=== PATIENT | male | born 1965 | race Caucasian/White ===

== ENCOUNTER 2023-05-27 17:01 | Emergency (ER) | payer OTHER, SELFPAY ==
[2023-05-27 17:02] VITALS: BP 141/92
[2023-05-27 17:18] VITALS: BP 142/78
[2023-05-27 17:19] VITALS: BMI 30.2
[2023-05-27 17:43] LABS: % Basophils 0.8 % (0-2); % Eosinophils 1.3 % (0-6); % Immature Granulocytes 0.4 % (0-0.5); % Lymphocytes 19.7 % (20.5-51.1); % Monocytes 8.2 % (1.7-9.3); % Neutrophils 69.6 % (42.2-75.2); Absolute Basophils 0.1 10^3/uL (0-0.2); Absolute Eosinophils 0.2 10^3/uL (0-0.7); Absolute Immature Granulocytes 0.1 10^3/uL (0-0.05); Absolute Lymphocytes 2.5 10^3/uL (1.2-3.4); Absolute Neutrophils 8.8 10^3/uL (1.4-6.5); Hematocrit 45.1 % (39.0-52.0); Hemoglobin 15.7 g/dL (13.0-18.0); Mean Corp Hgb Conc. 34.8 g/dL (33.0-37.0); Mean Platelet Volume 10.2 fL (7.4-10.4); Nucleated Red Blood Cells % 0 % (-); Platelet Count 297 10^3/uL (130-400); Red Cell Dist. Width 12.2 % (11.5-14.5); White Blood Cell Count 12.6 10^3/uL (4.8-10.8)
--- NOTE | 2023-05-27 17:48 | ED.GENMED ---
History of Present Illness
General
Chief Complaint: Abdominal Pain
Source: patient
Exam Limitations: none
Time Seen by Provider: 05/27/23 17:38
Nursing documentation reviewed up to this point in time: agreed with
Travel History
Have you had any contact with someone who has COVID-19?: No
Do you have any symptoms of coronavirus? Fever > 100 degrees, chills, cough, shortness of breath, sore throat, loss of taste or smell, muscle aches, or headache?: No
History of Present Illness
History of Present Illness:
Patient to ED with complaint of bilateral lower abdominal pain. Symptoms started this AM and continue to worsen. Denies fever/chills, n/v. States he passed a small amt of watery stool today. Brought self to ED for eval.
Past History
Past History
ED Past Medical History: Asthma, HTN and Psychiatric (ADHD)
ED Past Surgical History: Orthopedic and Other (Hernia repair)
Social History
Tobacco: Non-smoker
Alcohol: None
Drug: None
Review of Systems
Review of Systems
Allergies reviewed?: Yes
All Other Systems: ROS reviewed and negative except as documented in HPI and ROS
Constitutional: Reports no symptoms
EENT: Reports no symptoms
Respiratory: Reports no symptoms
Cardiac: Reports no symptoms
ABD/GI: Reports abdominal pain
: Reports no symptoms
Musculoskeletal: Reports no symptoms
Skin: Reports no symptoms
Neurological: Reports no symptoms
Psychiatric: Reports no symptoms
Phy Exam
General Physical Exam
General Presentation: well appearing
General age: appears stated age
General Skin: warm and dry
General Habitus: normal
Cardiovascular Exam
Cardiovascular Exam: regular rate/rhythm and no edema
Pulmonary Exam
Pulmonary Exam: lungs clear and no respiratory distress
Gastrointestinal Exam
Gastrointestinal Exam: normal bowel sounds, soft, no organomegaly, no pulsatile mass and non distended
Palpation: left upper quadrant: No tenderness, left lower quadrant: Moderate tenderness, right upper quadrant: No tenderness and right lower quadrant: Moderate tenderness
Musculoskeletal Exam
Musculoskeletal Exam: full ROM and neuro vasc intact
Skin Exam
Skin Exam: normal color, warm/dry and no rash
Psychiatric Exam
Psychiatric Exam: normal mood/affect
Course
Orders/Labs/Results
Orders:
Orders
05/27/23 17:31
CMP [Comprehensive Metabolic Panel] Urgent
Complete Blood Count/With Diff Urgent
Lipase Urgent
Comment: ADD ON
05/27/23 17:46
Add On- LAB Urgent
Tests Added?: lipase
05/27/23 17:47
CT Abd/pel W Iv And Oral Contr Urgent
Comment:
Reason For Exam: bilateral lower abdominal pain
Iohexol [Omnipaque] See Protocol PO NOW STA
05/27/23 17:57
Urinalysis Reflex To Culture Urgent
Date Specimen was Collected: 05/27/23
Time Specimen was Collected: 17:48
Urine Microscopic Reflex Cult Urgent
05/27/23 17:58
0.9% Sodium Chloride 1000 ml [Nss] 1,000 ml IV BOLUS
05/27/23 21:30
Amoxicillin 875 mg/Clav 125 mg [Augmentin 875 mg/125 mg] 1 tablet PO NOW STA
Abnormal Lab Results
05/27/23 05/27/23
17:31 17:57
WBC 12.6 H 10^3/uL
(4.8-10.8)
MCH 32.0 H pg
(27.0-31.0)
Abs Immat Gran (auto) 0.1 H 10^3/uL
(0-0.05)
Absolute Neuts (auto) 8.8 H 10^3/uL
(1.4-6.5)
Absolute Monos (auto) 1.0 H 10^3/uL
(0.1-0.6)
Lymphocytes % 19.7 L %
(20.5-51.1)
BUN 29 H mg/dl
(9-20)
Creatinine 1.4 H mg/dL
(0.7-1.3)
Glucose 127 H mg/dl
(70-99)
Ur Occult Blood Reflex Trace A
(Negative)
05/27/23 17:31
05/27/23 17:31
Vital Signs
Initial and Last Documented VS:
Initial Vital Signs
Temp Pulse Resp BP Pulse Ox
98.7 F 61 18 141/92 97
05/27/23 17:02 05/27/23 17:02 05/27/23 17:02 05/27/23 17:02 05/27/23 17:02
Last Documented Vital Signs
Temp Pulse Resp BP Pulse Ox
98.7 F 61 18 161/91 96
05/27/23 17:02 05/27/23 17:02 05/27/23 17:02 05/27/23 21:00 05/27/23 21:00
*Radiology
Radiology exam reviewed: radiology read reviewed
*Pulse Oximetry
Patient hypoxic: no
*Critical Care Note
Total Time (30-74mins, 75-104mins- exclusive of procedures): Not Applicable
Update Note
Update Note:
CT results reviewed with patient - diverticulitis. Augmentin started in dept. Given instructions on s/s to return to the emergency department and he is agreeable to plan.
ED Attending Note
-
Portions of this chart may have been created with voice recognition software.� Occasional wrong word or��sound alike� substitutions may have occurred due to the inherent limitations of voice recognition software.
Discharge Plan
Departure
Patient Disposition: Home (Routine Discharge)
Date of Disposition: 05/27/23
Time of Disposition: 21:30
Patient with high blood pressure during this ER visit?: No
Condition: Good
Covid-19: Not Applicable
Discharge Problem:
Diverticulitis
Instructions: Clear Liquid Diet, Diverticulitis (DC)
Prescriptions:
New
amoxicillin-pot clavulanate 875-125 mg tablet
1 tab PO BID Qty: 14 0RF
Referrals:
Tori Diaz MD [Family Provider] - Follow up in 2-3 days
Activity Restrictions/Additional Instructions:
Return to the emergency department immediately for fever/chills, increasing pain, vomiting, or for any further concerns.
Interventions
Interventions:
*Risk Screen - Suicide Last Done: 05/27/23 17:02
*General Assessment Last Done: 05/27/23 17:02
*Neglect/Abuse Screening Last Done: 05/27/23 17:02
ED- Fall Risk Assessment Last Done: 05/27/23 17:19
*ED COVID-19 Vaccine History Last Done: 05/27/23 17:19
*Nursing Disposition Last Done: 05/27/23 21:43
DU-Hrbyln-Yqopmhpagy Assessment Last Done: 05/27/23 17:19
Discharge Date and Time
Discharge Date/Time: 05/27/23 21:43
[2023-05-27] MEDS: OMNIPAQUE 50 ML PO (17:51)
[2023-05-27 17:58] LABS: ALT (SGPT) 30 U/L (0-50); AST (SGOT) 25 U/L (17-59); Albumin 4.4 g/dl (3.5-5.0); Alkaline Phosphatase 77 U/L (38-126); Blood Urea Nitrogen 29 mg/dl (9-20); Calcium 9.8 mg/dl (8.4-10.2); Carbon Dioxide 30 mmol/L (22-30); Chloride 99 mmol/L (98-107); Estimated Creatinine Clearance 67 ml/min; Glucose 127 mg/dl (70-99); Potassium 3.8 mmol/L (3.5-5.1); Sodium 139 mmol/L (135-145); Total Bilirubin 0.4 mg/dl (0.2-1.3); Total Protein 7.1 g/dl (6.3-8.2); eGFR 58.26
[2023-05-27] MEDS: NSS 1000 IV (18:04)
[2023-05-27 18:09] LABS: Urine Albumin Negative (Neg - Trace); Urine Bilirubin Negative (Negative); Urine Character Clear (Clear); Urine Color Yellow; Urine Glucose Negative (Negative); Urine Ketone Negative (Negative); Urine Leukocyte Negative (Negative); Urine Nitrite Negative (Negative); Urine Occult Blood Trace (Negative); Urine Specific Gravity 1.025 (<1.030); Urine Urobilinogen Negative (Neg - 1+)
[2023-05-27 18:17] LABS: Urine Squamous Cell 0-2 /LPF (Few)
[2023-05-27 18:18] LABS: Urine Red Blood Cell 0-2 /HPF (0-2); Urine White Cell None Seen /HPF (0-5)
[2023-05-27 18:20] LABS: Lipase 90 U/L (23-300)
[2023-05-27 20:43] VITALS: BP 152/86
[2023-05-27 21:00] VITALS: BP 161/91
[2023-05-27] MEDS: AUGMENTIN 875 MG/125 MG 1 TABLET PO (21:37)
== END 2023-05-27 21:43 | disposition home or self-care (01) ==
LOC: EMR 17:01
PROVIDERS: Nurse Practitioner; EMERGENCY PHYSICIAN Emergency Medicine; FAMILY PHYSICIAN Internal Medicine
DX: K57.32 Diverticulitis of large intestine without perforation or abscess without bleeding (principal)
CPT/HCPCS: 99285; 96360; 74177; 80053; 81003; 81015; 83690; 85025; Q9967

== ENCOUNTER 2025-01-22 14:53 | Emergency (ER) | payer OTHER, SELFPAY ==
[2025-01-22 15:09] VITALS: BP 121/84
[2025-01-22 15:13] LABS: Glucose - Point of Care 567 mg/dl (70-99)
[2025-01-22 15:31] LABS: Hematocrit 45.5 % (39.0-52.0); Hemoglobin 15.8 g/dL (13.0-18.0); Mean Corp Hgb Conc. 34.7 g/dL (33.0-37.0); Mean Corpuscular Volume 94.4 fL (80.0-94.0); Nucleated Red Blood Cells % 0 % (-); Platelet Count 276 10^3/uL (130-400); Red Cell Dist. Width 11.9 % (11.5-14.5)
[2025-01-22 15:48] LABS: ALT (SGPT) 44 U/L (0-50); AST (SGOT) 26 U/L (17-59); Albumin 4.4 g/dl (3.5-5.0); Alkaline Phosphatase 131 U/L (38-126); Blood Urea Nitrogen 35 mg/dl (9-20); Calcium 9.5 mg/dl (8.4-10.2); Carbon Dioxide 27 mmol/L (22-30); Chloride 92 mmol/L (98-107); Glucose 617 mg/dl (70-99); Potassium 4.8 mmol/L (3.5-5.1); Sodium 127 mmol/L (135-145); Total Protein 7.3 g/dl (6.3-8.2); eGFR 57.54
[2025-01-22 17:08] VITALS: BMI 27.7
[2025-01-22 17:12] VITALS: BP 122/92
[2025-01-22] MEDS: NSS 1000 IV ×3 (17:14→19:49)
[2025-01-22] MEDS: NSS IV (18:00)
[2025-01-22 18:05] LABS: Venous Blood Gas B.E. 0.2 mmol/L (-4 to +4); Venous Blood Gas O2 Sat % 79.1 %
[2025-01-22 18:30] LABS: Glucose - Point of Care 461 mg/dl (70-99)
[2025-01-22] MEDS: NOVOLOG vial 10 UNITS SC (18:31)
[2025-01-22 19:00] VITALS: BP 141/87
[2025-01-22 19:22] LABS: Glucose - Point of Care 393 mg/dl (70-99)
--- NOTE | 2025-01-22 19:32 | ED.GENMED ---
History of Present Illness
General
Chief Complaint: Blood Sugar Problem
Time Seen by Provider: 01/22/25 17:42
History of Present Illness
History of Present Illness:
59-year-old male with history of hypertension presenting to the emergency department for concern of new onset diabetes. Patient had outpatient lab testing completed through his primary care doctor, noted to have a elevated glucose, and elevated
hemoglobin A1c. Patient was sent to the ER for concern of new onset diabetes. Patient does note family history of diabetes, his brother and his father. Also reports poor diet habits, has been eating a lot of sugary foods and a lot of sugary
drinks. Reports sugary coffee drinks and juices. Primary noting polyuria and polydipsia. Denies chest pain, difficulty breathing, abdominal pain. Denies fever. Denies additional acute medical complaints
Past History
Past History
ED Past Medical History: Asthma, HTN and Psychiatric (ADHD)
ED Past Surgical History: Orthopedic and Other (Hernia repair)
Social History
Tobacco: Non-smoker
Alcohol: None
Drug: None
Phy Exam
Physical Exam
Physical Exam:
General: Dry mucous membranes, nontoxic
HEENT: protecting airway
Neck: appears supple
CV: Normal heart rate, regular rhythm
Resp: No accessory muscle use, no increased work of breathing, lungs clear to auscultation bilaterally
Abd: Soft and non-distended, no tenderness to palpation
Extremities: No deformities, no swelling
Neuro: alert, no focal neurologic deficit
: deferred
Rectal: deferred
Psych: Normal affect
Skin: Intact
Course
Orders/Labs/Results
Orders:
Orders
01/22/25 15:20
Complete Blood Count/With Diff Urgent
Comprehensive Metabolic Panel Urgent
01/22/25 17:14
0.9% Sodium Chloride 1000 ml [Nss] 1,000 ml IV BOLUS
01/22/25 17:15
B-Hydroxybutyrate Urgent
Insulin, Random [S] Routine
Comment: ADD ON
01/22/25 17:43
0.9% Sodium Chloride 1000 ml [Nss] 1,000 ml IV BOLUS
01/22/25 17:58
Venous Blood Gas Urgent
%Oxygen/Room Air: 21
01/22/25 18:10
Add On- LAB Urgent
Tests Added?: insulin random
01/22/25 18:20
Insulin Aspart [NOVOLOG vial] 10 units SC NOW STA
01/22/25 19:31
0.9% Sodium Chloride 1000 ml [Nss] 1,000 ml IV BOLUS
Abnormal Lab Results
01/22/25 01/22/25 01/22/25
15:12 15:20 17:15
WBC 11.5 H 10^3/uL
(4.8-10.8)
MCV 94.4 H fL
(80.0-94.0)
MCH 32.8 H pg
(27.0-31.0)
MPV 11.3 H fL
(7.4-10.4)
Abs Immat Gran (auto) 0.1 H 10^3/uL
(0-0.05)
Absolute Neuts (auto) 8.3 H 10^3/uL
(1.4-6.5)
Absolute Monos (auto) 0.7 H 10^3/uL
(0.1-0.6)
Lymphocytes % 19.6 L %
(20.5-51.1)
Sodium 127 L mmol/L
(135-145)
Chloride 92 L mmol/L
(98-107)
BUN 35 H mg/dl
(9-20)
Creatinine 1.4 H mg/dL
(0.7-1.3)
Glucose 617 H* mg/dl
(70-99)
Alkaline Phosphatase 131 H U/L
(38-126)
B-Hydroxybutyrate 1.13 H mmol/L
(0.02-0.27)
POC Glucose 567 H* mg/dl
(70-99)
01/22/25 01/22/25
18:29 19:21
WBC
MCV
MCH
MPV
Abs Immat Gran (auto)
Absolute Neuts (auto)
Absolute Monos (auto)
Lymphocytes %
Sodium
Chloride
BUN
Creatinine
Glucose
Alkaline Phosphatase
B-Hydroxybutyrate
POC Glucose 461 H* mg/dl 393 H mg/dl
(70-99) (70-99)
01/22/25 15:20
01/22/25 15:20
Vital Signs
Initial and Last Documented VS:
Initial Vital Signs
Temp Pulse Resp BP Pulse Ox
99.3 F 105 16 121/84 95
01/22/25 15:09 01/22/25 15:09 01/22/25 15:09 01/22/25 15:09 01/22/25 15:09
Last Documented Vital Signs
Temp Pulse Resp BP Pulse Ox
99.3 F 70 13 122/92 94
01/22/25 15:09 01/22/25 18:15 01/22/25 18:15 01/22/25 17:12 01/22/25 19:36
MDM/Problems Addressed
MDM/Problems Addressed:
59-year-old male with history of hypertension presenting for concern of new onset diabetes with polyuria, polydipsia, hyperglycemia. Vital signs on arrival are normal.
On exam patient is resting comfortably, no acute distress. Patient nontoxic in appearance, no hemodynamic instability. Vabfi-[id number] glucose obtained on arrival, reading high. Labs also obtained prior to my assessment, which shows hyperglycemia.
However, no anion gap. Will send venous blood gas and beta hydroxybutyrate. At this time higher suspicion for type 2 diabetes, notes poor diet, copious sugar intake.
19:30 - Beta-hydroxybutyrate is mildly elevated, however no anion gap, no acidosis. Without present concern for DKA. Patient received IV fluids, subcutaneous insulin. Will monitor blood glucose for improvement
20:30 -after fluids and insulin, sugar is appropriately downtrended to 300. Patient remains hemodynamically stable. Feel stable for discharge. Suspicion for type 2 diabetes, will start on metformin. Will also send glucose test strips and
prescription for glucometer. Extensive conversation had regarding diet modification and foods to avoid. Advised close interval follow-up with PCP, may need insulin going forward. Return precautions discussed and patient verbalized understanding
*Pulse Oximetry
SaO2: 94
Oxygen Mode of Delivery: Room air
Patient hypoxic: no
*Critical Care Note
Total Time (30-74mins, 75-104mins- exclusive of procedures): Not Applicable
ED Attending Note
-
Portions of this chart may have been created with voice recognition software.� Occasional wrong word or��sound alike� substitutions may have occurred due to the inherent limitations of voice recognition software.
Discharge Plan
Departure
Patient with high blood pressure during this ER visit?: No
Condition: Good
Discharge Problem:
Diabetes mellitus, new onset, Hyperglycemia
Instructions: Diabetes and diet, High blood sugar in adults - ED (DC)
Prescriptions:
New
(DME) blood-glucose meter Kit
See Rx Instructions .ROUTE Qty: 1 0RF
Rx Instructions:
As directed
(DME) blood sugar diagnostic Strip
See Rx Instructions .ROUTE Qty: 50 0RF
Rx Instructions:
As directed
No Action
venlafaxine [Effexor XR] 150 mg Capsule,Extended Release 24hr
150 mg PO DAILY
lisinopril-hydrochlorothiazide 20-25 mg Tablet
1 tab PO DAILY
lisdexamfetamine 50 mg Capsule
50 mg PO DAILY
melatonin 5 mg Tablet
10 mg PO HS
Referrals:
Lloyd Goldberg MD [Family Provider, [facility]]
Activity Restrictions/Additional Instructions:
You were seen in the emergency department for elevated blood glucose
We suspect that you have new onset diabetes. You were started on metformin for suspected type 2 diabetes. Please also practice diet modification with low carbohydrate and sugar intake.
Please follow-up closely with your primary care physician for continued management of your elevated blood glucose and possible need for additional insulin therapy.
Return to the emergency department for any worsening of your symptoms, or any development of chest pain, difficulty breathing, abdominal pain with persistent vomiting and inability to tolerate food or liquid by mouth (concern for dehydration),
weakness, headache or confusion, fever greater than 100.4, or any additional symptoms that are concerning to you.
Thank you for choosing [facility].
Interventions
Interventions:
*Risk Screen - Suicide Last Done: 01/22/25 15:14
*General Assessment Last Done: 01/22/25 17:08
*Neglect/Abuse Screening Last Done: 01/22/25 15:14
*ED- Fall Risk Assessment Last Done: 01/22/25 17:08
*ED COVID-19 Vaccine History Last Done: 01/22/25 17:08
*ED Influenza Vaccine History Last Done: 01/22/25 17:08
ED- Neurological Assessment Last Done: 01/22/25 17:15
Discharge Date and Time
Print Language: KAZAKH
[2025-01-22 20:00] VITALS: BP 143/93
[2025-01-22 20:35] LABS: Glucose - Point of Care 317 mg/dl (70-99)
[2025-01-22] MEDS: GLUCOPHAGE 500 MG PO (21:02)
== END 2025-01-22 21:15 | disposition home or self-care (01) ==
LOC: EMR 14:53
PROVIDERS: EMERGENCY PHYSICIAN Student in an Organized Health Care Education/Training Program; FAMILY PHYSICIAN Family Medicine
DX: E11.65 Type 2 diabetes mellitus with hyperglycemia (principal); I10 Essential (primary) hypertension; J45.909 Unspecified asthma, uncomplicated; F90.9 Attention-deficit hyperactivity disorder, unspecified type; Z79.84 Long term (current) use of oral hypoglycemic drugs; Z83.3 Family history of diabetes mellitus
CPT/HCPCS: 99284; 96360; 96361 ×2; 96372; 80053; 82010; 82805; 82962; 83525; 85025

== ENCOUNTER 2025-01-23 14:01 | Emergency (ER) | payer OTHER, SELFPAY ==
[2025-01-23 14:08] LABS: Glucose - Point of Care 272 mg/dl (70-99)
[2025-01-23 14:38] VITALS: BP 131/79
--- NOTE | 2025-01-23 14:57 | ED.GENMED ---
History of Present Illness
General
Chief Complaint: Blood Sugar Problem
Source: patient and records
Exam Limitations: none
Time Seen by Provider: 01/23/25 14:29
Nursing documentation reviewed up to this point in time: agreed with
History of Present Illness
History of Present Illness:
Note:
CHIEF COMPLAINT(S)
Lightheadedness and nausea after starting new diabetes medication.
HISTORY OF PRESENT ILLNESS
The patient is a 59-year-old male with a recent diagnosis of diabetes mellitus. Yesterday, the patient received three bags of saline and 10 milliliters of insulin, reducing blood glucose levels to approximately 300 mg/dL. The patient reported
feeling well the previous night and consumed a usual breakfast of eggs and some protein this morning as part of their new dietary plan. After breakfast, the patient went with their father to retrieve a car and visit the pharmacy. During this outing,
the patient began to feel nauseated with a 'cold-like' sensation in the throat and a lightheaded feeling, which developed approximately an hour and a half before seeking medical care. These symptoms worsened over time, along with mild sweating on
the back. The patient confirmed taking metformin, as prescribed, before going to the pharmacy. The attending physician advised immediate evaluation at the hospital if unusual symptoms developed.
SOCIAL HISTORY
The patient indicated familial support, mentioning that their father accompanied them during their activities.
REVIEW OF SYSTEMS
- Constitutional: Complains of lightheadedness.
- Gastrointestinal: Nausea with a sensation reminiscent of having a cold, no vomiting.
- Endocrine: Managing new diagnosis of diabetes mellitus with symptoms possibly related to diabetes management.
PHYSICAL EXAM
General: Alert, no acute distress.
Skin: Warm, dry.
Head: Normocephalic, atraumatic.
Neck: Supple, trachea midline.
Eye, Ears, Nose, Mouth, and Throat: Oral mucosa moist.
Cardiovascular: Normal peripheral perfusion, No edema.
Respiratory: Respirations are non-labored.
Gastrointestinal: Abdomen nondistended.
Back: Normal range of motion, Normal alignment.
Musculoskeletal: Normal ROM, normal strength.
Neurological: Alert and oriented to person, place, time, and situation, No focal neurological deficit observed.
Psychiatric: Cooperative, appropriate mood & affect.
PLAN
1. Monitor blood glucose levels closely considering new diagnosis and recent medication start.
2. Provide anti-nausea medication to alleviate nausea symptoms.
3. Recommend adequate hydration and continued dietary management as previously planned with the primary care physician.
4. Follow-up to assess tolerance to metformin and adjust diabetes management plan as necessary.
DIFFERENTIAL DIAGNOSIS
The Differential Diagnosis includes, in no particular order and is not limited to:
1. Hypoglycemia due to medication adjustment.
2. Orthostatic hypotension.
3. Metformin-induced gastrointestinal upset.
4. Diabetic ketoacidosis or hyperglycemia.
5. Viral gastroenteritis.
6. Anxiety or stress-related response.
7. Hypovolemia secondary to reduced oral intake.
8. Electrolyte imbalance.
9. Myocardial infarction or acute coronary syndrome.
10. Vestibular disorder causing dizziness.
Disposition:
SUMMARY OF ENCOUNTER
The patient, a 59-year-old male with a recent diagnosis of diabetes mellitus, presented with lightheadedness and nausea after initiating metformin therapy. After eating breakfast and taking metformin, the patient experienced nausea, a cold-like
throat sensation, lightheadedness, and mild sweating. The symptoms warranted an emergency visit due to the potential adverse reaction to the new medication. Upon examination, the patient was alert and in no acute distress, with stable vital signs
and a normal abdominal exam.
DISPOSITION
Discharge
ASSESSMENT
The patient experienced potential side effects from metformin, presenting as nausea and lightheadedness.
PLAN
1. Continue monitoring blood glucose levels closely.
2. Encourage hydration and adherence to the diabetes dietary plan outlined by the primary care provider.
3. Assess patients response to metformin over time to determine if adjustment is needed.
4. Recommend follow-up with the primary care provider to evaluate symptoms and consider medication adjustment if necessary.
PATIENT EDUCATION AND COUNSELING
The patient was advised to monitor symptoms closely and seek immediate medical attention if symptoms worsen. They were educated on the importance of maintaining hydration and adhering to their dietary plan as prescribed.
FOLLOW-UP INSTRUCTIONS
The patient was advised to follow up with their primary care provider to reassess the tolerance to metformin and adjust the diabetes management plan as necessary.
MEDICATION RECONCILIATION
Continue metformin as prescribed.
MEDICAL DECISION MAKING
- Number and Complexity of Problems Addressed: Chronic conditions affecting care include the recent diagnosis of diabetes mellitus. Differential diagnosis includes hypoglycemia, orthostatic hypotension, metformin-induced gastrointestinal upset,
diabetic ketoacidosis or hyperglycemia, viral gastroenteritis, anxiety or stress-related response, hypovolemia, electrolyte imbalance, myocardial infarction, acute coronary syndrome, and vestibular disorder.
- Data:
- Category 1: Reviewed current medication therapy and symptoms post-medication administration.
- Category 2: My independent interpretation of EKG is normal.
- Risk:
Prescription drug management including the continuation of metformin and monitoring for any potential side effects.
Care significantly affected by social determinants of health: Presence of familial support, as the patient was accompanied by his father.
DIAGNOSIS
Type 2 diabetes mellitus without complications (E11.9)
Past History
Past History
ED Past Medical History: Asthma, HTN and Psychiatric (ADHD)
ED Past Surgical History: Orthopedic and Other (Hernia repair)
Social History
Tobacco: Non-smoker
Alcohol: None
Drug: None
Phy Exam
Physical Exam
Physical Exam:
.
Course
Orders/Labs/Results
Orders:
Orders
01/23/25 14:39
Electrocardiogram (*1) Urgent
Reason for Study: Syncope
EKG- Treatment ONCE
01/23/25 15:02
Basic Metabolic Panel Urgent
Abnormal Lab Results
01/23/25 01/23/25
14:05 15:02
Sodium 129 L mmol/L
(135-145)
BUN 24 H mg/dl
(9-20)
Glucose 256 H mg/dl
(70-99)
POC Glucose 272 H mg/dl
(70-99)
01/23/25 15:02
Vital Signs
Initial and Last Documented VS:
Initial Vital Signs
Pulse Resp BP Pulse Ox
54 17 131/79 97
01/23/25 14:38 01/23/25 14:38 01/23/25 14:38 01/23/25 14:38
Last Documented Vital Signs
Temp Pulse Resp BP Pulse Ox
97.5 F 53 18 129/83 96
01/23/25 15:50 01/23/25 15:45 01/23/25 15:45 01/23/25 15:00 01/23/25 15:45
*Pulse Oximetry
Patient hypoxic: no
*Critical Care Note
Total Time (30-74mins, 75-104mins- exclusive of procedures): Not Applicable
ED Attending Note
-
Portions of this chart may have been created with voice recognition software.� Occasional wrong word or��sound alike� substitutions may have occurred due to the inherent limitations of voice recognition software.
Discharge Plan
Departure
Patient Disposition: Home (Routine Discharge)
Date of Disposition: 01/23/25
Time of Disposition: 15:39
Patient with high blood pressure during this ER visit?: Yes
Condition: Good
Discharge Problem:
Diabetes mellitus with hyperglycemia
Instructions: Type 2 Diabetes (DC), BLOOD PRESSURE
Prescriptions:
No Action
venlafaxine [Effexor XR] 150 mg Capsule,Extended Release 24hr
150 mg PO DAILY
lisinopril-hydrochlorothiazide 20-25 mg Tablet
1 tab PO DAILY
lisdexamfetamine 50 mg Capsule
50 mg PO DAILY
melatonin 5 mg Tablet
10 mg PO HS
(DME) blood-glucose meter Kit
See Rx Instructions .Route Qty: 1 0RF
Rx Instructions:
As directed
(DME) blood sugar diagnostic Strip
See Rx Instructions .Route Qty: 50 0RF
Rx Instructions:
As directed
metformin 500 mg tablet
500 mg PO BID Qty: 60 0RF
Referrals:
Lloyd Goldberg MD [Family Provider, [facility]] - Call in 1-3 days for appt
Interventions
Interventions:
*Risk Screen - Suicide Last Done: 01/23/25 14:47
*Neglect/Abuse Screening Last Done: 01/23/25 14:47
*Nursing Disposition Last Done: 01/23/25 16:24
ED- Neurological Assessment Last Done: 01/23/25 14:47
Discharge Date and Time
Discharge Date/Time: 01/23/25 16:24
Print Language: FRISIAN
[2025-01-23 15:00] VITALS: BP 129/83
[2025-01-23 15:31] LABS: Blood Urea Nitrogen 24 mg/dl (9-20); Calcium 8.5 mg/dl (8.4-10.2); Carbon Dioxide 24 mmol/L (22-30); Chloride 101 mmol/L (98-107); Glucose 256 mg/dl (70-99); Potassium 3.8 mmol/L (3.5-5.1); Sodium 129 mmol/L (135-145); eGFR > 60.00
== END 2025-01-23 16:24 | disposition home or self-care (01) ==
LOC: EMR 14:01
PROVIDERS: EMERGENCY PHYSICIAN Emergency Medicine; FAMILY PHYSICIAN Family Medicine
DX: E11.65 Type 2 diabetes mellitus with hyperglycemia (principal); I10 Essential (primary) hypertension; J45.909 Unspecified asthma, uncomplicated; F90.9 Attention-deficit hyperactivity disorder, unspecified type; Z79.84 Long term (current) use of oral hypoglycemic drugs
CPT/HCPCS: 99284; 80048; 82962; 93005

== ENCOUNTER → 2025-01-28 12:24 | Outpatient (REF) | payer OTHER, SELFPAY ==
--- NOTE | 2025-01-28 12:49 | PN.DE.MGMTRT ---
Insulin Management
- -
01/28/2025: Diabetes Management Consult
Vitals: BP:122/74, HR 84, O2 sat 99%, Wt today was 198 lbs
Met with Mr. Rosado for insulin management and training for placement of wearable CGM sensor
Pt was recently started on basal bolus insulin by his primary care doctor after consultation with me via phone.
States he was taking Metformin 500mg BID a while back but has stopped taking it and recently started taking NovoLog 5 units AC, Lantus 10 units in AM.
Patient presented for his visit with a glucose log that he started on 01/26. Review of his glucose log shows blood sugars have remained elevated 246 to 353.Patient was instructed to increase his Lantus dose to 20 units and his NovoLog dose to 10
units.
Pt states he has not been exercising due to near episodes of syncope and is not on a diabetic diet. Instructed pt to call his PCP office and report sx of near syncope as it may be related to his blood pressure.
Pt was provided with a new Thanh Plus 3 Sensor, assisted pt through process of creating an account in the [employer].
Reviewed procedure of sensor application and identified appropriate areas of sensor placement.
Pt identified RUE back of the arm as preferred site for insertion. Prepped skin with alcohol and sensor was placed.
Reviewed use of mobile device to display glucose readings, alerts and pre-set Low or High Glucose levels for hypoglycemia or hyperglycemia awareness.
Sensor was linked to his smart phone [employer] and 60-minute warm-up phase was initiated.
Discussed trend arrows that show whether glucose values are rising or falling and how fast, explained predictive alerts and how they alert the patient before reaching pre-set Low or High Glucose Alert levels.
Discussed alerts for hypoglycemia, instructed pt to always check a finger stick for confirmation of low blood sugar and discussed treatment for Hypoglycemia. Instructed pt to check his blood glucose via sensor before meals, then inject mealtime
insulin in stomach and eat in 10-20 minutes and Long acting insulin in outer thigh, rotating sites. Aware to store insulin pens that are not in use in the refrigerator. Discussed importance of assessing food/medication effect on his Blood sugar via
sensor.
Pt was provided information and DSME class material and was encouraged to register for the Mar 2025 class.
RX for CGM sensor, NovoLog and Lantus as well as pen needles were sent to his patient.
All questions and concerns were addressed and answered to his satisfaction.
He will contact the diabetes office should he need any further assistance with his CGM and insulin dose adjustment.
Diabetes History
- -
Type of Diabetes: 2 requiring insulin
Pre-Admission Diabetes Regimen
Insulin Pump Settings
IP Diabetes Regimen
Patient Education
--- NOTE | 2025-01-29 11:01 | PN.DE ---
Diabetes Education
- -
01/29/2025 DIABETES EDUCATION CONSULT
I spoke to Mr. Rosado, asked him to add our department as a connected practice under [facility] for his [facility] CGM.
He is entering his insulin dosing and food choices. I educated him that the numbers are inaccurate for a good 24 hours and some report functions are not available for 5 days. He is eating snacks, asked if he should give insulin with snacks. I
educated him that unless directed by his PCP or Jim to only take insulin as prescribed with meals and at bedtime; Jim will contact him next week for CGM review. He plans to take the diabetes education class in March, he will contact us later
today to discuss further.
== END ==
LOC: DES 12:24
PROVIDERS: ATTENDING PHYSICIAN Family Medicine
DX: E11.9 Type 2 diabetes mellitus without complications (principal)
CPT/HCPCS: 99078